=== PATIENT | female | born 1995 | race Caucasian/White ===

== ENCOUNTER 2017-06-21 19:26 | Emergency (ER) | payer MEDICAID ==
--- NOTE | 2017-06-21 20:03 | Emergency Department Record ---
History of Present Illness - General Chief Complaint: Abdominal Pain Stated Complaint: ABD PAIN Time Seen by Provider: 06/21/17 19:32 Source: Patient Mode of Arrival: Ambulatory Limitations: No limitations - History of Present Illness Initial Comments: 21 yo female presents to ED with a CC of worsening nausea and generalized abdominal pain that began around 11:00 am this morning. Patient denies fevers, vomiting, or change in stools, and patient denies previous abdominal surgery or health problems at her baseline. Patient denies urinary symptoms or vaginal discharge symptoms. MD Complaint: Abdominal pain Onset/Timin -: Hour(s) Location: Diffuse Severity: Moderate Quality: Aching, Cramping Consistency: Intermittent Improves With: Nothing Worsens With: Movement Associated Symptoms: Nausea, Other - Related Data Home Medications Medication Instructions Recorded Confirmed Last Taken Levonorgestrel [Mirena] 1 each IY DAILY each 05/13/17 06/21/17 06/21/17 Citalopram Hydrobromide [Celexa] 40 mg PO DAILY 06/21/17 06/21/17 06/20/17 Allergies Allergy/AdvReac Type Severity Reaction Status Date / Time No Known Allergies Allergy , Verified 06/21/17 19:41 Travel Screening - Travel/Exposure Within Last 30 Days Have you traveled within the last 30 days?: No - Travel Symptoms Symptom Screening: None Review of Systems Constitutional: Denies: Chills, Fever, Malaise, Night sweats Eyes: Denies: Eye discharge, Eye pain ENT: Denies: Congestion, Ear pain, Epistaxis Respiratory: Denies: Cough, Dyspnea Cardiovascular: Denies: Chest pain, Dyspnea on exertion Endocrine: Denies: Fatigue, Heat or cold intolerance Gastrointestinal: Reports: Abdominal pain, Nausea. Denies: Constipation, Vomiting Genitourinary: Denies: Incontinence, Retention Musculoskeletal: Denies: Arthralgia, Back pain, Gout, Joint swelling Skin: Denies: Bruising, Change in color Neurological: Denies: Abnormal gait, Confusion, Headache, Seizure Psychiatric: Denies: Anxiety Hematological/Lymphatic: Denies: Anemia, Blood Clots Past Medical History - SOCIAL HISTORY Smoking Status: Never smoker - RESPIRATORY Hx Respiratory Disorders: No - CARDIOVASCULAR Hx Cardio Disorders: No - NEURO Hx Neuro Disorders: No - GI Hx GI Disorders: No - Hx Genitourinary Disorders: No - ENDOCRINE Hx Endocrine Disorders: No - MUSCULOSKELETAL Hx Musculoskeletal Disorders: No - PSYCH Hx Psych Problems: Yes Hx Anxiety: Yes - HEMATOLOGY/ONCOLOGY Hx Hematology/Oncology Disorders: No Family Medical History Any Significant Family History?: Yes Hx Cancer: Grandparents Physical Exam - General General Appearance: Alert, Oriented x3, Cooperative, Mild distress Limitations: No limitations - Head Head exam: Atraumatic, Normocephalic, Normal inspection Head exam detail: negative: Abrasion, Contusion, Francisco's sign, General tenderness, Hematoma, Laceration - Eye Eye exam: Normal appearance. negative: Conjunctival injection, Periorbital swelling, Periorbital tenderness, Scleral icterus - ENT Ear exam: negative: Auricular hematoma, Auricular trauma Nasal Exam: negative: Active bleeding, Discharge, Dried blood, Foreign body Mouth exam: negative: Drooling, Laceration, Muffled voice, Tongue elevation - Neck Neck exam: Normal inspection. negative: Meningismus, Tenderness - Respiratory Respiratory exam: Normal lung sounds bilaterally. negative: Rales, Respiratory distress, Rhonchi, Stridor - Cardiovascular Cardiovascular Exam: Regular rate, Normal rhythm, Normal heart sounds - GI/Abdominal GI/Abdominal exam: Soft, Tenderness, Other (Mild, generalized TTP without rebound, guarding, or peritoneal signs.). negative: Rebound, Rigid - Rectal Rectal exam: Deferred - exam: Deferred - Extremities Extremities exam: Normal inspection. negative: Calf tenderness, Pedal edema, Tenderness - Back Back exam: Denies: CVA tenderness (R), CVA tenderness (L) - Neurological Neurological exam: Alert, Normal gait, Oriented X3 - Psychiatric Psychiatric exam: Normal affect, Normal mood - Skin Skin exam: Normal color. negative: Abrasion Type of lesion: negative: abrasion Course Vital Signs 06/21/17 19:34 Temperature 98.1 F Pulse Rate [ 89 Pulse Ox Probe] Respiratory 20 Rate Blood Pressure 116/79 [Left Arm] Pulse Ox 99 - Reevaluation(s) Reevaluation #1: 06/21/17 20:35 Labs reviewed and are grossly unremarkable for an acute process. CT imaging pending. Reevaluation #2: 06/21/17 23:44 CT Abdomen and Pelvis: Mild hydro-ureter and proximal hydro-nephrosis without evidence for ureteral calculi. Patient reassessed and updated on all results, reports that her symptoms are improved. Discussed all results with the patient, in the presence of normal urine, non-calcified stone seems unlikely, no evidence for infection. Patient appears stable for discharge at this time with instructions to return in 12-24 hours if her symptoms fail to improved and to call Dr. Mejias Saturday for follow- up appointment. Patient appears stable for discharge at this time. Medical Decision Making - Lab Data Result diagrams: 06/21/17 19:57 06/21/17 19:57 Disposition Disposition: Discharge Clinical Impression: Abdominal pain Qualifiers: Abdominal location: generalized Qualified Code(s): R10.84 - Generalized abdominal pain Disposition: Home, Self-Care Condition: (2) Stable Instructions: Abdominal Pain (ED) Additional Instructions: Return to ED if your symptoms worsen or if you have any concerns. Return to ED in 12-24 hours if your symptoms fail to improve. Ibuprofen as needed for your pain symptoms. Follow-up with Dr. Mejias Saturday as directed. Forms: Patient Portal Access Time of Disposition: 23:48 Quality - Quality Measures Quality Measures: N/A - Blood Pressure Screening Blood Pressure Classification: Normal BP Reading Systolic Measurement: 98 Diastolic Measurement: 68 Screening for High Blood Pressure: < Normal BP, F/U Not Required > [[id number]] Normal BP Follow-up Interventions: No follow-up required
[2017-06-21 20:04] LABS: BASO % 0.3 % (0-6); EOS % 0.6 % (0-6); GRAN % 75.7 % (47-80); HEMATOCRIT 43.1 % (35.0-47.0); HEMOGLOBIN 14.9 gm/dl (11.6-16.0); LYMPH % 14.9 % (16-45); MEAN CELL VOLUME 92.3 fl (81-97); MEAN CORPUSCULAR HEMOGLOBIN 31.9 pg (27-33); MEAN CORPUSCULAR HGB CONC 34.6 g/dl (32-36); MEAN PLATELET VOLUME 10.7 fl (7.4-10.4); MONO % 8.5 % (0-9); PLATELET COUNT 234 K/uL (130-400); RED BLOOD COUNT 4.67 M/uL (3.80-5.40); WHITE BLOOD COUNT W/O DIFF 7.8 K/uL (4.2-12.2)
[2017-06-21 20:04] LABS: URINE APPEARANCE CLOUDY; URINE BILIRUBIN NEGATIVE (NEGATIVE); URINE BLOOD TRACE-I (NEGATIVE); URINE COLOR YELLOW; URINE GLUCOSE (UA) NEGATIVE (NEGATIVE); URINE KETONE NEGATIVE (NEGATIVE); URINE LEUKOCYTE ESTERASE NEGATIVE (NEGATIVE); URINE NITRITE NEGATIVE (NEGATIVE); URINE PROTEIN NEGATIVE (NEGATIVE); URINE UROBILINOGEN 0.2 E.U./dL (0.20 - 1.00)
[2017-06-21] MEDS: ONDANSETRON HCL IV 4 MG/2 ML VIAL IVP ONE (20:07)
[2017-06-21] MEDS: 0.9 % SODIUM CHLORIDE 1000ML 1,000 ML IV SCH (20:07)
[2017-06-21] MEDS: HYOSCYAMINE SULFATE ODT 0.125 MG TAB.SUBL SL ONE (20:08)
[2017-06-21 20:15] LABS: ALB/GLOB RATIO 1.7 (1.1-1.8); ALKALINE PHOSPHATASE 50 U/L (38-126); ALT/SGPT 33 U/L (9-52); ANION GAP 10.9 (7-16); AST/SGOT 22 U/L (14-36); BLOOD UREA NITROGEN 14 mg/dL (7-17); CARBON DIOXIDE 27.1 mmol/L (22-30); CREATININE 0.9 mg/dL (0.52-1.04); EST GLOMERULAR FILTRATION RATE > 60 ml/min; GLUCOSE,RANDOM 101 mg/dL (70-110); LIPASE 134 U/L (23-300)
[2017-06-21 20:15] LABS: URINE EPITHELIAL CELLS 0 - 2 (FEW); URINE RBC 0 - 2 (NONE SEEN); URINE WBC NONE SEEN (0-2/hpf)
[2017-06-21 20:16] LABS: URINE BACTERIA NONE SEEN
[2017-06-21 20:18] LABS: HCG,QUALITATIVE URINE NEGATIVE (NEGATIVE)
[2017-06-21] MEDS: KETOROLAC 30 MG/ML VIAL IVP ONE (21:50)
--- NOTE | 2017-06-25 07:29 | CT SCAN REPORT ---
EXAM: CT OF THE ABDOMEN AND PELVIS WITH CONTRAST HISTORY: DIFFUSE ABDOMINAL PAIN. TECHNIQUE: Following oral and intravenous contrast administration, helical CT examination of the abdomen and pelvis was performed including delayed images through the kidneys with 93 ml of Omnipaque 300 utilized. Comparison: None. FINDINGS: There is minimal linear scarring versus atelectasis within the right lung base. The lung bases are otherwise clear and there is no pleural or pericardial effusion. The liver, spleen, pancreas, adrenal glands, and left kidney are normal in appearance. No focal right renal lesion is seen. The proximal to mid right ureter appears somewhat patulous, but without erlinda hydronephrosis and there is no obstructing lesion seen. This is nonspecific and could represent a normal variant. The gallbladder is unremarkable and no biliary ductal dilatation is seen. The vasculature is normal in appearance. No intraabdominal nor retroperitoneal lymphadenopathy. The uterus is in the midline and without evidence of mass. An intrauterine contraceptive device is in place appearing satisfactory in position. No pelvic mass. No lymphadenopathy is seen. Trace free fluid is suggested in the cul-de- sac. This is nonspecific, but likely physiologic. No gross bowel dilatation or bowel wall thickening is seen. The appendix is at least partially visualized and normal in appearance. No lytic or blastic bone lesion is demonstrated. IMPRESSION: 1. MILDLY PATULOUS RIGHT URETER WITHOUT ERLINDA HYDRONEPHROSIS. NO DEFINITE OBSTRUCTING LESION. THIS APPEARANCE MAY JUST RELATE TO PHASE OF PERISTALSIS/ NORMAL VARIANT. 2. TRACE FREE FLUID IN THE CUL-DE-SAC IS NONSPECIFIC, BUT LIKELY PHYSIOLOGIC. 3. INTRAUTERINE CONTRACEPTIVE DEVICE IN PLACE APPEARING SATISFACTORY IN POSITION. JOB NUMBER: [id number] [facility]
== END 2017-06-21 23:57 | disposition home or self-care (01) ==
LOC: ER 19:26
DX: R10.84 Generalized abdominal pain (principal); R11.0 Nausea
CPT/HCPCS: 99284 ×2; 96374; 96375; 83690; 85025; 80053; 81001; 81025; 74177; Q9967; J1980; J1885; J2405; J7030